=== PATIENT | male | born 1985 | race Caucasian/White ===

== ENCOUNTER 2023-01-08 08:34 | Outpatient (REF) | payer OTHER, SELFPAY ==
[2023-01-08 11:43] LABS: MANUAL DIFF FLAG NO
[2023-01-08 11:54] LABS: Appearance Urine Clear; Color Urine Dark Yellow; Glucose Urine UA Negative (Negative); Leukocyte Esterase Urine Negative (Negative); Nitrite Urine Negative (Negative); PH 5.5 (5.0-9.0); Specific Gravity - Urine 1.025 (1.005-1.025); Urine Blood Negative (Negative); Urine Ketones Negative (Negative); Urine Protein Negative (Neg-Trace)
[2023-01-08 11:56] LABS: Basophils Percent Auto 0.7 % (0-2); Eosinophils Percent Auto 0.7 % (0-4); Hematocrit 44.1 % (42.0-52.0); Hemoglobin 14.4 g/dl (14.0-18.0); Imm Gran Abs Auto 0.02 X10*3/uL (0.00-0.03); Imm Gran Pct Auto 0.4 % (0.0-0.4); Lymphocytes Percent Auto 42.9 % (20-40); Mean Corpuscular HGB Conc 32.7 g/dl (31.0-36.0); Mean Corpuscular Hemoglobin 30.6 pg (27.0-33.0); Mean Corpuscular Volume 93.8 fL (80.0-98.0); Mean Platelet Volume 11.8 fL (9.4-12.4); Monocytes Absolute Auto 0.4 X10*3/uL (0.1-1.2); Monocytes Percent Auto 8.4 % (2-11); Neutrophils Absolute Auto 2.1 x10*3/uL (2.0-8.3); Neutrophils Percent Auto 46.9 % (45-73); Platelet Count 249 X10*3/uL (160-400); Red Cell Distribution Width 12.4 % (11.0-16.0); White Blood Count 4.6 X10*3/uL (4.8-10.8)
[2023-01-08 12:28] LABS: Alanine Aminotransferase 17 U/L (0-40); Albumin Level 4.8 g/dL (3.5-5.0); Alkaline Phosphatase 37 U/L (39-117); Anion Gap 16 (12-20); Aspartate Amino Transferase 22 U/L (5-37); Blood Urea Nitrogen 16 mg/dL (9-16); Calcium 9.7 mg/dL (8.4-10.2); Carbon Dioxide 25 mmol/L (22-29); Chloride 104 mmol/L (96-108); Estimated Glomerular Filt Rate > 60; Glucose Random 81 mg/dL (60-115); Potassium 4.1 mmol/L (3.3-5.1); Sodium 141 mmol/L (135-145); TSH reflex Free T4 1.17 uIU/mL (0.32-4.0)
== END 2023-01-08 08:35 | disposition home or self-care (01) ==
LOC: HO.HMGCLDS 08:34
PROVIDERS: PCP Nurse Practitioner Family; Visit Provider Nurse Practitioner Family
DX: F32.9 Major depressive disorder, single episode, unspecified (principal)
CPT/HCPCS: 36415; 80053; 81003; 84443; 85025

== ENCOUNTER → 2023-03-21 12:57 | Outpatient (BNVA) | payer OTHER, SELFPAY | PROVIDERS: PCP Nurse Practitioner Family; Referring Provider Nurse Practitioner Family; Visit Provider Internal Medicine ==

== ENCOUNTER → 2023-04-04 12:48 | Outpatient (REF) | payer OTHER, SELFPAY ==
--- NOTE | 2023-04-04 12:51 | CA_ITS ---
Transthoracic Echocardiogram Patient (Last, First, Middle): Bin Guardado, Gender: Male Date of : 1985 Age: 38 Procedure Date: 04/04/2023 Procedure Type: Transthoracic Echocardiogram Location: OP Height: 180.34 cm Weight: 79.38 kg BSA: 1.99 m2 Heart Rate: bpm BP: 110 / 70 mmHg Dog Food Dough Mixer: TO Referring MD: Jn Esteban MD Bleacher [place] Pulp: Hakan Guadarrama MD Symptoms: I45.10 - Unspecified right bundle-branch block Study Quality: Adequate ECG Rhythm: Sinus Conclusions: - 1. Normal LV systolic function with LVEF of 55-60% with normal filling pattern 2. Normal cardiac valvular Dopplers 3. Mildly dilated ascending aorta at 3.8 cm 4. Normal RV systolic pressure 5. No gross pericardial effusion Findings Left Ventricle Normal left ventricular size, thickness, and systolic function. The visually estimated ejection fraction is between 55-60%. Spectral Doppler is indicative of a normal filling pattern. Peak GLS is -19.4%, within normal limits. Right Ventricle Normal right ventricular cavity size and systolic function. Atria Both atria are normal in size. There is lipomatous hypertrophy of the interatrial septum. There is no evidence of interatrial shunt. Aortic Valve Normal aortic valve structure and function. There is no aortic valve stenosis. There is no aortic valve regurgitation. Mitral Valve There is mild anterior and posterior mitral leaflet thickening. There is trace mitral valve regurgitation. There is no mitral valve stenosis. Pulmonic Valve The pulmonic valve is likely normal. Tricuspid Valve Normal tricuspid valve structure. There is trace tricuspid valve regurgitation. The right ventricular systolic pressure is normal. The right ventricular systolic pressure is 19 mmHg. Normal right atrial pressure. There is no evidence of pulmonary hypertension. Great Vessels The pulmonary artery was not well visualized. There is mild dilatation of the ascending aorta measuring 3.80 cm. Venous The inferior vena cava is normal in size and collapses greater than 50% with inspiration. Pericardium/Pleural There is no evidence of pericardial effusion. Prior Study Comparison No prior study available for comparison. Measurements 2D Linear Measurements IVSd: 1.03 0.6-0.9/0.6-1.0 cm LVIDd: 4.60 3.9-5.3/4.2-5.9 cm LVIDd Index: 2.31 2.4-3.2/2.2-3.1 cm/m2 LVIDs: 3.03 2.0-3.6 cm LVPWd: 0.76 0.7-1.1 cm LA Diam: 3.20 2.7-3.8/3.0-4.0 cm LAIDs Index: 1.61 1.5-2.3 cm/m2 LV Mass: 170.00 67-162/88-224 g LV Mass Index: 85.43 43-95/49-115 g/m2 LVOT Diam: 2.40 3.0+(-)1.3 cm 2D Systolic Function EF 4C: 58.20 >55% EF 2C: 58.40 >55% EF BiP: 58.00 >55% Mitral Valve MV Pk E: 0.60 MV PK A: 0.39 MV Decel Time: 266.00 E/A: 1.50 E'Lateral: 11.00 E'Medial: 7.29 E/E' Med: 8.20 E/E' Lat: 5.40 PHT: 78.00 MVA PHT: 2.82 Decel [place]: 2.24 Aortic Valve AoV Pk Evert: 1.19 AoV Mn Evert: 0.90 AoV VTI: 0.27 AoV Pk Grad: 6.00 Aov Mn Grad: 4.00 KASIA Cont.VTI: 3.41 LVOT LVOT Pk Evert: 1.04 LVOT Mn Evert: 0.69 LVOT VTI: 0.20 LVOT Pk Grad: 4.00 LVOT Mn Grad: 2.00 LVOT Diam: 2.40 LVOT Area: 4.52 Diastolic Function MV Pk E: 0.60 MV Pk A: 0.39 E/A: 1.50 E'Medial: 7.29 E/E' Med: 8.20 E' Laterial: 11.00 E/E' Lat: 5.40 Right Ventricle TAPSE (mm): 28.10 TVS' Evert: 12.90 Tricuspid Valve TR Pk Evert: 2.01 TR Pk Grad: 16.00 RA Press: 3.00 RVSP: 19.00 Great Vessels Aorta Sinus of Valsalva: 3.92 2.0-3.[address] [place]: 3.20 1.7-3.4 cm Ao Asc: 3.80 2.1-3.4 cm Updated in Other Vendor System with Status of Final Hakan Guadarrama MD electronically signed on 04/05/2023 10:49:44 AM with status of Final
== END ==
LOC: HO.CARD 12:48
PROVIDERS: PCP Nurse Practitioner Family; Visit Provider Internal Medicine
DX: I45.10 Unspecified right bundle-branch block (principal)
CPT/HCPCS: 93306; 93356

== ENCOUNTER 2023-05-16 14:23 | Outpatient (REF) | payer OTHER, SELFPAY ==
--- NOTE | ~2023-05-16 | US_ITS ---
EXAMINATION: US SCROTUM CLINICAL INFORMATION: Disorder of male genital organs, unspecified. Testicular lesion. COMPARISON: None available. TECHNIQUE: A sonogram of the scrotum was performed assessing jaime-scale appearance and color Doppler flow. Spectral Doppler analysis of the arterial and venous flow were performed in the testes bilaterally. FINDINGS: RIGHT: Right testicle measures 5.61 x 3.05 x 4.38 cm, volume 39.2 mL. No focal testicular parenchymal lesions are visualized. Spectral Doppler analysis of the arterial and venous flow is normal in the right testis. Right epididymal head is enlarged. A 0.8 cm mixed cystic and solid epididymal head lesion, of uncertain etiology unclear if this could reflect a septated complex cyst versus a mixed solid and cystic mass. The right epididymis appears possibly mildly hypervascular, recommend correlation with any clinical symptoms of epididymitis. No right hydrocele or varicocele is seen. Right epididymal Doppler flow is normal. LEFT: Left testicle measures 5.84 x 2.95 x 3.13 cm, volume 28.3 mL. No focal testicular parenchymal lesions are visualized. Spectral Doppler analysis of the arterial and venous flow is normal in the left testis. Left epididymal head is normal in size. No left varicocele is seen. Trace septated hydrocele with debris. Left epididymal Doppler flow is normal. US/US scrotum IMPRESSION: 1. The right epididymis appears possibly mildly hypervascular, recommend correlation with any clinical symptoms of epididymitis. 2. A 0.8 cm mixed cystic and solid epididymal head lesion, of uncertain etiology unclear if this could reflect a septated complex cyst versus a mixed solid and cystic mass, for which differential considerations would be broad however include adenomatoid tumor of the scrotum or papillary cystoadenoma of the epididymis recommend urologic evaluation and management. 3. Trace septated left hydrocele with debris. The report will be called to the ordering clinician by a [facility] Residential Installer.
== END 2023-05-16 14:24 | disposition home or self-care (01) ==
LOC: HO.HMGCX 14:23
PROVIDERS: PCP Nurse Practitioner Family; Visit Provider Nurse Practitioner Family
DX: N50.9 Disorder of male genital organs, unspecified (principal)
CPT/HCPCS: 76870

== ENCOUNTER 2023-06-14 14:58 | Outpatient (AMB) | payer OTHER, SELFPAY ==
--- NOTE | 2023-06-14 15:00 | MHC.OFFVIS ---
Intake Intake Visit Reasons: Disorder of male genital organs Intake Note: New Patient presents for initial visit for hydrocele/spermatocele Urology Medication: none Blood thinner: none Fire Pot Operator Required: No Accompanied by: Self / Same As Patient Allergies No Known Allergies [No Known Allergies*] Allergy (Verified 06/14/23 15:51) Medication List - Last Reconciled 06/14/23 by CONTRERAS Narvaez- sertraline 25 mg PO DAILY 30 days HPI HPI Comments History of Present Illness Details Bin is a very pleasant 38-year-old male patient of Dr. Aldana. He presents to the office today as a new patient for noted right-sided lump/mass on his right upper testicle. He discusses having had his annual physical with PCP at which time recommendations were made for scrotal ultrasound and follow-up with Urology. The patient has a previous history of right sided hydrocelectomy and a vasectomy with Dr. Phillips in 2019. He denies any testicular pain or urinary issues. He denies urinary urgency, urinary frequency, incontinence, nocturia, hematuria, dysuria, foul smelling urine, changes to urinary stream, flank pain, fever, and or chills. He is happy with his current voiding parameters. Recent scrotal ultrasound results reviewed with the patient today. A 0.8 cm mixed cystic and solid epididymal head lesion. In assessment of the patient today left testicle WNL; no masses, lesion, or drainage noted. No abnormalites palpated. Dime sized movable lump/mass noted to the right side epididymal head otherwise no other lesions, lumps, or masses palpated. No pain elicited bilaterally during examination. The testicles/scrotum otherwise appear normal on exam today. In office urinalysis results reviewed with the patient today. [facility] Family History Unknown No problems noted. Social History Housing: House Alcohol intake: current Alcohol intake frequency: a few times a month Patient Tobacco Use Status: Former Tobacco user Quit Date: quit 12 years ago e-Cigarette/Vaping Use: Never Used Second Hand Smoke Exposure: No service: No Current occupational status: employed Current occupation: green collar Current occupational exposures/hazards: No Cognitive needs: No Hearing needs: No Vision needs: No Review of Systems Const All systems reviewed & are unremarkable except as noted in HPI and below Reports no additional complaints Eyes Reports no additional complaints ENT Reports no additional complaints Card Reports no additional complaints Resp Reports no additional complaints GI Reports no additional complaints Reports as per HPI Neuro Reports no additional complaints Psych Reports no additional complaints Endo Reports no additional complaints Cameron/Lymph Reports no additional complaints Aller/Immun Reports no additional complaints Physical Exam Const General: cooperative, healthy appearing, comfortable, no acute distress, well developed, alert and awake Nutritional Appearance: average body habitus Orientation/consciousness: patient oriented x3 Limitations: no limitations HEENT Head: Yes normal to inspection, Yes normocephalic and Yes atraumatic Ears: hearing grossly normal bilaterally Eyes General: appearance normal, both eyes and all related structures Neck Neck: Yes normal visual inspection and Yes trachea midline Chest Chest palpation & inspection: normal inspection of the chest Resp Effort & Inspection: normal respiratory effort and able to speak in complete sentences Cardio Rate: regular rate GI Inspection: Yes normal to inspection General: Yes no CVA tenderness Back/Spine/Pelvis Back: no CVA tenderness Skin General skin exam: no rashes or lesions noted Neuro General: patient oriented x3 Extrem General: Yes normal to inspection Psych Appearance: grossly normal and well kempt Mental Status: mental status grossly normal Speech and movement: Normal speech and movement present and Clear speech present Affect: normal affect Attitude: cooperative Thought process: Normal thought process present Thought content: Normal thought content present Insight: Good insight present (Psych) Judgement: Good judgement present (Psych) Results AMB Urinalysis, Automated UA Leukoctes 0 Samuel/uL Last Edit by Verimatrix on 06/14/23 15:11 UA Nitrite Last Edit by Verimatrix on 06/14/23 15:11 UA Urobilinogen 0.2 mg/dL Last Edit by Verimatrix on 06/14/23 15:11 UA Protein 0 mg/dL Last Edit by Verimatrix on 06/14/23 15:11 UA pH 6.0 Last Edit by Verimatrix on 06/14/23 15:11 UA Blood 10 Alejandro/uL Last Edit by Verimatrix on 06/14/23 15:11 UA Specific [place] 1.015 Last Edit by Verimatrix on 06/14/23 15:11 UA Ketone Negative Last Edit by Ang Higginbotham on 06/14/23 15:11 UA Bilirubin 0 mg/dL Last Edit by Ang Higginbotham on 06/14/23 15:11 UA Glucose 0 mg/dL Last Edit by Ang Higginbotham on 06/14/23 15:11 Results Reviewed Results Reviewed: Laboratory Last Values Urine pH (Auto) 6.0 06/14/23 15:02 Specific [place] (Auto) 1.015 06/14/23 15:02 Urine Protein (Auto) 0 mg/dL 06/14/23 15:02 Glucose (UA)(Auto) 0 mg/dL 06/14/23 15:02 Urine Ketones (Auto) Negative 06/14/23 15:02 Urine Blood (Auto) 10 Alejandro/uL 06/14/23 15:02 Urine Bilirubin (Auto) 0 mg/dL 06/14/23 15:02 Urine Urobilinogen (Auto) 0.2 mg/dL 06/14/23 15:02 Leukocyte Esterase (Auto) 0 Samuel/uL 06/14/23 15:02 Date of Service: 05/16/23 EXAMINATION: US SCROTUM FINDINGS: RIGHT: Right testicle measures 5.61 x 3.05 x 4.38 cm, volume 39.2 mL. No focal testicular parenchymal lesions are visualized. Spectral Doppler analysis of the arterial and venous flow is normal in the right testis. Right epididymal head is enlarged. A 0.8 cm mixed cystic and solid epididymal head lesion, of uncertain etiology unclear if this could reflect a septated complex cyst versus a mixed solid and cystic mass. The right epididymis appears possibly mildly hypervascular, recommend correlation with any clinical symptoms of epididymitis. No right hydrocele or varicocele is seen. Right epididymal Doppler flow is normal. LEFT: Left testicle measures 5.84 x 2.95 x 3.13 cm, volume 28.3 mL. No focal testicular parenchymal lesions are visualized. Spectral Doppler analysis of the arterial and venous flow is normal in the left testis. Left epididymal head is normal in size. No left varicocele is seen. Trace septated hydrocele with debris. Left epididymal Doppler flow is normal. IMPRESSION: 1.? The right epididymis appears possibly mildly hypervascular, recommend correlation with any clinical symptoms of epididymitis. 2.? A 0.8 cm mixed cystic and solid epididymal head lesion, of uncertain etiology unclear if this could reflect a septated complex cyst versus a mixed solid and cystic mass, for which differential considerations would be broad however include adenomatoid tumor of the scrotum or papillary cystoadenoma of the epididymis recommend urologic evaluation and management. 3.? Trace septated left hydrocele with debris. Assessment & Plan Assessment & Plan (1) Epididymal cyst: Code(s): N50.3 - Cyst of epididymis Plan In office urinalysis results reviewed with the patient today; as noted above Patient with hx of right sided hydrocelectomy and vasectomy with Dr. Phillips in 2019 No pain elicited on exam today It appears right-sided epididymal head cyst versus scar tissue. Discussed u/s results and assessment with Dr. Phillips Discussed surveillance monitoring Scrotal ultrasound in 6 months Follow-up in 6 months with imaging; or sooner with any issues, concerns, and or questions. Orders: Orders US scrotum 6 Months N43.3 - Hydrocele, unspecified AMB Urinalysis Automated Today Z13.9 - Encounter for screening, unspecified Patient Instructions: The patient had an opportunity to ask questions regarding the treatment plan. All questions were answered. Physical exam, labs, and imaging were discussed and reviewed in detail. As well as risks, benefits, and discussion of treatment choices. No major barriers to understanding were identified. The patient expressed understanding and agreement with the above treatment plan. The patient was made aware they should contact our office by phone for worsening of their current condition, the appearance of new symptoms, or with any questions or concerns. Compliance is encouraged with any medications and follow up testing that is ordered. It is a privilege to be allowed the opportunity to participate in? your urological care.? Again, if you have any questions or concerns If you have any questions or concerns please do not hesitate to contact me. The office is [phone]. This note is constructed using voice recognition software. While every effort has been made to ensure accuracy sharepoint manager errors may have been included. Yours sincerely, BECKA Narvaez Coding Level of Care Code New Pt Level 3 (25178) Diagnoses Epididymal cyst N50.3
== END 2023-06-14 15:30 | disposition home or self-care (01) ==
PROVIDERS: PCP Nurse Practitioner Family; Visit Provider Nurse Practitioner Family
DX: N50.3 Cyst of epididymis (principal)
CPT/HCPCS: 99203

== ENCOUNTER → 2023-06-14 14:58 | Outpatient (BNVA) | payer OTHER, SELFPAY | PROVIDERS: PCP Nurse Practitioner Family; Visit Provider Nurse Practitioner Family ==

== ENCOUNTER 2023-11-26 10:24 | Outpatient (REF) | payer OTHER, SELFPAY ==
--- NOTE | ~2023-11-26 | US_ITS ---
EXAMINATION: US SCROTUM CLINICAL INFORMATION: Hydrocele, unspecified. COMPARISON: Ultrasound scrotum 05/16/2023. TECHNIQUE: A sonogram of the scrotum was performed assessing jaime-scale appearance and color Doppler flow. Spectral Doppler analysis of the arterial and venous flow were performed in the testes bilaterally. FINDINGS: RIGHT: Right testicle measures 5.37 x 3.21 x 4.25 cm, volume 38.3 mL. No focal testicular parenchymal lesions are visualized. Spectral Doppler analysis of the arterial and venous flow is normal in the right testis. Right epididymal head is normal in size. Dilated tubular structures within the body of the right epididymis. No internal color Doppler flow. No right hydrocele is seen. Right varicocele. Right epididymal Doppler flow is normal. LEFT: Left testicle measures 6.10 x 2.67 x 3.01 cm, volume 25.7 mL. No focal testicular parenchymal lesions are visualized. Spectral Doppler analysis of the arterial and venous flow is increased in the left testis. Left epididymal head is normal in size. Left varicocele. Small left hydrocele. Left epididymal Doppler flow is normal. US/US scrotum IMPRESSION: Dilated tubular structure involving the body of the right epididymis with possible thickening of the epididymis. No associated/increased vascular flow. The appearance is similar to the prior study. Bilateral varicoceles. Small left hydrocele.
== END 2023-11-26 10:25 | disposition home or self-care (01) ==
LOC: HO.HMGCX 10:24
PROVIDERS: PCP Nurse Practitioner Family; Visit Provider Nurse Practitioner Family
DX: N43.3 Hydrocele, unspecified (principal)
CPT/HCPCS: 76870

== ENCOUNTER 2023-12-13 13:27 | Outpatient (AMB) | payer OTHER, SELFPAY ==
--- NOTE | 2023-12-13 13:48 | A.OFFVIS_ITS ---
Intake Intake Visit Reasons: 6m/US(set) Intake Note: Patient presents for follow up visit for epididymal cyst and ultrasound results Imagin11/26/23 Urology Medications: none Blood Thinner: none Or First Assist Registered Nurse Required: No Accompanied by: Self / Same As Patient Allergies No Known Allergies [No Known Allergies*] Allergy (Verified 12/14/23 07:00) Medication List - Last Reconciled 12/14/23 by BECKA Narvaez No Known Home Meds HPI HPI Comments History of Present Illness Details Bin is a very pleasant 38-year-old male patient of Dr. Aldana. He presents to the office today for a follow up of his epeidiymal head cyst. In discussion with the patient today reports to be doing and feeling well. Recent scrotal ultrasound results reviewed with the patient today. Dilated tubular structure involving the body of the right epididymis with possible thickening of the epididymis. No associated/increased vascular flow. The appearance is similar to the prior study. Bilateral varicoceles. Small left hydrocele. Similar to prior study. He has a history of a right sided hydrocelectomy and a vasectomy with Dr. Phillips in 2019. He denies any testicular pain or urinary issues. He denies urinary urgency, urinary frequency, incontinence, nocturia, hematuria, dysuria, foul smelling urine, changes to urinary stream, flank pain, fever, and or chills. He is happy with his current voiding parameters. He otherwise offers no other issues or concerns at this time [facility] Family History Unknown No problems noted. Social History Housing: House Alcohol intake: current Alcohol intake frequency: a few times a month Patient Tobacco Use Status: Former Tobacco user Quit Date: quit 12 years ago e-Cigarette/Vaping Use: Never Used Second Hand Smoke Exposure: No service: No Current occupational status: employed Current occupation: green collar Current occupational exposures/hazards: No Cognitive needs: No Hearing needs: No Vision needs: No Review of Systems Const All systems reviewed & are unremarkable except as noted in HPI and below Reports no additional complaints Eyes Reports no additional complaints ENT Reports no additional complaints Card Reports no additional complaints Resp Reports no additional complaints GI Reports no additional complaints Reports as per HPI Neuro Reports no additional complaints Psych Reports no additional complaints Endo Reports no additional complaints Cameron/Lymph Reports no additional complaints Aller/Immun Reports no additional complaints Physical Exam Const General: cooperative, healthy appearing, comfortable, no acute distress, well developed, alert and awake Nutritional Appearance: average body habitus Orientation/consciousness: patient oriented x3 Limitations: no limitations HEENT Head: Yes normal to inspection, Yes normocephalic and Yes atraumatic Ears: hearing grossly normal bilaterally Eyes General: appearance normal, both eyes and all related structures Neck Neck: Yes normal visual inspection and Yes trachea midline Chest Chest palpation & inspection: normal inspection of the chest Resp Effort & Inspection: normal respiratory effort and able to speak in complete sentences Cardio Rate: regular rate GI Inspection: Yes normal to inspection General: Yes no CVA tenderness Back/Spine/Pelvis Back: no CVA tenderness Skin General skin exam: no rashes or lesions noted Neuro General: patient oriented x3 Extrem General: Yes normal to inspection Psych Appearance: grossly normal and well kempt Mental Status: mental status grossly normal Speech and movement: Normal speech and movement present and Clear speech present Affect: normal affect Attitude: cooperative Thought process: Normal thought process present Thought content: Normal thought content present Insight: Good insight present (Psych) Judgement: Good judgement present (Psych) Results AMB Urinalysis, Automated UA Leukoctes 0 Asmuel/uL Last Edit by Ivory Hooper [facility] on 12/13/23 14 :01 UA Nitrite Negative Last Edit by Ivory Hooper [facility] on 12/13/23 14: 01 UA Urobilinogen 0.2 mg/dL Last Edit by Ivory Hooper [facility] on 4 14:01 UA Protein 0 mg/dL Last Edit by Ivory Hooperalberto Hooper [facility] on 12/13/23 14:01 UA pH 6.0 Last Edit by Ivory Hooper [facility] on 12/13/23 14:01 UA Blood 0 Alejandro/uL Last Edit by Ivory Hooper [facility] on 12/13/23 14:01 UA Specific [place] 1.015 Last Edit by Ivory Hoopre [facility] on 14:01 UA Ketone Negative Last Edit by Ivory Hooper [facility] on 12/13/23 14:0 1 UA Bilirubin 0 mg/dL Last Edit by Ivory Hooper [facility] on 12/13/23 14: 01 UA Glucose 0 mg/dL Last Edit by Ivory Hooper CMA on 12/13/23 14:01 Results Reviewed Results Reviewed: Laboratory Last Values Urine pH (Auto) 6.0 12/13/23 13:50 Specific [place] (Auto) 1.015 12/13/23 13:50 Urine Protein (Auto) 0 mg/dL 12/13/23 13:50 Glucose (UA)(Auto) 0 mg/dL 12/13/23 13:50 Urine Ketones (Auto) Negative 12/13/23 13:50 Urine Blood (Auto) 0 Alejandro/uL 12/13/23 13:50 Urine Nitrite (Auto) Negative 12/13/23 13:50 Urine Bilirubin (Auto) 0 mg/dL 12/13/23 13:50 Urine Urobilinogen (Auto) 0.2 mg/dL 12/13/23 13:50 Leukocyte Esterase (Auto) 0 Samuel/uL 12/13/23 13:50 Date of Service: 11/26/23 EXAMINATION: US SCROTUM FINDINGS: RIGHT: Right testicle measures 5.37 x 3.21 x 4.25 cm, volume 38.3 mL. No focal testicular parenchymal lesions are visualized. Spectral Doppler analysis of the arterial and venous flow is normal in the right testis. Right epididymal head is normal in size. Dilated tubular structures within the body of the right epididymis. No internal color Doppler flow. No right hydrocele is seen. Right varicocele. Right epididymal Doppler flow is normal. LEFT: Left testicle measures 6.10 x 2.67 x 3.01 cm, volume 25.7 mL. No focal testicular parenchymal lesions are visualized. Spectral Doppler analysis of the arterial and venous flow is increased in the left testis. Left epididymal head is normal in size. Left varicocele. Small left hydrocele. Left epididymal Doppler flow is normal. IMPRESSION: Dilated tubular structure involving the body of the right epididymis with possible thickening of the epididymis. No associated/increased vascular flow. The appearance is similar to the prior study. Bilateral varicoceles. Small left hydrocele. Assessment & Plan Assessment & Plan (1) Epididymal cyst: Code(s): N50.3 - Cyst of epididymis (2) Testicular lesion: Code(s): N50.9 - Disorder of male genital organs, unspecified Plan In office urinalysis results reviewed with the patient today; as noted above Patient with hx of right sided hydrocelectomy and vasectomy with Dr. Phillips in 2019 He denies any bothersome urinary issues or concerns. He reports be happy with current voiding parameters. Discussed surveillance monitoring Scrotal ultrasound in 1 year Follow-up in 1 year with imaging; or sooner with any issues, concerns, and or questions. Orders: Orders AMB Urinalysis Automated 12/13/23 R33.9 - Retention of urine, unspecified US scrotum 364 Days N43.3 - Hydrocele, unspecified, N50.3 - Cyst of epididymis, N50.9 - Disorder of male genital organs, unspecified Patient Instructions: The patient had an opportunity to ask questions regarding the treatment plan. All questions were answered. Physical exam, labs, and imaging were discussed and reviewed in detail. As well as risks, benefits, and discussion of treatment choices. No major barriers to understanding were identified. The patient expressed understanding and agreement with the above treatment plan. The patient was made aware they should contact our office by phone for worsening of their current condition, the appearance of new symptoms, or with any questions or concerns. Compliance is encouraged with any medications and follow up testing that is ordered. It is a privilege to be allowed the opportunity to participate in? your urological care.? Again, if you have any questions or concerns If you have any questions or concerns please do not hesitate to contact me. The office is [phone]. This note is constructed using voice recognition software. While every effort has been made to ensure accuracy continuous towel roller errors may have been included. Yours sincerely, BECKA Narvaez Coding Level of Care Code Est Pt Level 3 (24185) Diagnoses Epididymal cyst N50.3 Testicular lesion N50.9
== END 2023-12-13 14:17 | disposition home or self-care (01) ==
PROVIDERS: PCP Nurse Practitioner Family; Visit Provider Nurse Practitioner Family
DX: N50.3 Cyst of epididymis (principal); N50.9 Disorder of male genital organs, unspecified
CPT/HCPCS: 99213

== ENCOUNTER → 2023-12-13 13:27 | Outpatient (BNVA) | payer OTHER, SELFPAY | PROVIDERS: PCP Nurse Practitioner Family; Visit Provider Nurse Practitioner Family | DX: N50.3 Cyst of epididymis (principal); N50.9 Disorder of male genital organs, unspecified; R33.9 Retention of urine, unspecified | CPT/HCPCS: 81003 ==

== ENCOUNTER → 2024-03-12 09:56 | Outpatient (REF) | payer OTHER, SELFPAY ==
--- NOTE | 2024-03-12 09:59 | CA_ITS ---
Transthoracic Echocardiogram Patient (Last, First, Middle): Bin Guardado, Gender: Male Date of : 1985 Age: 39 Procedure Date: 03/12/2024 Procedure Type: Transthoracic Echocardiogram Location: OP Height: 180.34 cm Weight: 83.92 kg BSA: 2.04 m2 Heart Rate: bpm BP: 120 / 82 mmHg Wire Harness Assembler: JOHN Referring MD: Jn Esteban MD Md Urologist: Hakan Guadarrama MD Symptoms: I77.89 - Other specified disorders of arteries and arterioles Study Quality: Adequate ECG Rhythm: Sinus Conclusions: - 1. Normal LV systolic function with LVEF of 55-60% 2. Normal cardiac valvular Doppler 3. Mildly dilated ascending aorta at 3.8 cm 4. Normal RV systolic pressure 5. No pericardial effusion Findings Left Ventricle Normal left ventricular size, thickness, and systolic function. The visually estimated ejection fraction is between 55-60%. Diastolic function is normal for age. Peak GLS is -19.3%, within normal limits. Right Ventricle Normal right ventricular cavity size and systolic function. Atria Both atria are normal in size. There is no evidence of interatrial shunt. Aortic Valve Normal aortic valve structure and function. There is no aortic valve stenosis. There is no aortic valve regurgitation. Mitral Valve There is mild anterior and posterior mitral leaflet thickening. There is mild mitral annular calcification. There is trace mitral valve regurgitation. There is no mitral valve stenosis. Pulmonic Valve The pulmonic valve is likely normal. There is trace pulmonic valve regurgitation. Tricuspid Valve Normal tricuspid valve structure. There is trace tricuspid valve regurgitation. The right ventricular systolic pressure is normal. The right ventricular systolic pressure is 21 mmHg. Normal right atrial pressure. There is no evidence of pulmonary hypertension. Great Vessels The pulmonary artery was not well visualized. There is mild dilatation of the ascending aorta measuring 3.80 cm. Venous The inferior vena cava is normal in size and collapses greater than 50% with inspiration. Pericardium/Pleural There is no evidence of pericardial effusion. Prior Study Comparison No significant change compared to prior study dated: 04/04/2023. Measurements 2D Linear Measurements IVSd: 0.78 0.6-0.9/0.6-1.0 cm LVIDd: 5.08 3.9-5.3/4.2-5.9 cm LVIDd Index: 2.49 2.4-3.2/2.2-3.1 cm/m2 LVIDs: 3.38 2.0-3.6 cm LVPWd: 0.78 0.7-1.1 cm LA Diam: 3.20 2.7-3.8/3.0-4.0 cm LAIDs Index: 1.57 1.5-2.3 cm/m2 LV Mass: 168.12 67-162/88-224 g LV Mass Index: 82.41 43-95/49-115 g/m2 LVOT Diam: 2.40 3.0+(-)1.3 cm 2D Systolic Function EF 4C: 58.60 >55% EF 2C: 63.10 >55% EF BiP: 59.90 >55% Mitral Valve MV Pk E: 0.60 MV PK A: 0.48 MV Decel Time: 365.00 E/A: 1.20 E'Lateral: 11.60 E'Medial: 7.51 E/E' Med: 7.90 E/E' Lat: 5.10 PHT: 107.00 MVA PHT: 2.06 Decel [place]: 1.63 Aortic Valve AoV Pk Evert: 1.08 AoV Mn Evert: 0.80 AoV VTI: 0.28 AoV Pk Grad: 5.00 Aov Mn Grad: 3.00 KASIA Cont.VTI: 3.39 LVOT LVOT Pk Evert: 0.97 LVOT Mn Evert: 0.64 LVOT VTI: 0.21 LVOT Pk Grad: 4.00 LVOT Mn Grad: 2.00 LVOT Diam: 2.40 LVOT Area: 4.52 Diastolic Function MV Pk E: 0.60 MV Pk A: 0.48 E/A: 1.20 E'Medial: 7.51 E/E' Med: 7.90 E' Laterial: 11.60 E/E' Lat: 5.10 Right Ventricle TAPSE (mm): 21.70 TVS' Evert: 10.30 Tricuspid Valve TR Pk Evert: 1.83 TR Pk Grad: 13.00 RA Press: 8.00 RVSP: 21.00 Great Vessels Aorta Sinus of Valsalva: 4.00 2.0-3.[address] Ridge: 3.00 1.7-3.4 cm Ao Asc: 3.80 2.1-3.4 cm Ao Arch: 3.10 Updated in Other Vendor System with Status of Final Hakan Guadarrama MD electronically signed on 03/13/2024 3:43:31 PM with status of Final
== END ==
LOC: HO.CARD 09:56
PROVIDERS: PCP Nurse Practitioner Family; Visit Provider Internal Medicine
DX: I77.89 Other specified disorders of arteries and arterioles (principal)
CPT/HCPCS: 93306; 93356

== ENCOUNTER → 2024-03-12 09:59 | Outpatient (BNV) | payer OTHER, SELFPAY | PROVIDERS: PCP Nurse Practitioner Family; Visit Provider Internal Medicine Cardiovascular Disease | DX: I77.810 Thoracic aortic ectasia (principal); I34.0 Nonrheumatic mitral (valve) insufficiency | CPT/HCPCS: 93306; 93356 ==

== ENCOUNTER 2025-04-17 09:01 | Outpatient (AMB) | payer OTHER, SELFPAY ==
--- NOTE | 2025-04-17 09:03 | MHC.OFFWIV ---
Intake Vital Signs 04/17/25 09:08 Height 5 ft 11 in Weight 195 lb 6 oz BMI 27.2 BP 114/76 Blood Pressure Location Rt brachial Position Sitting Pulse 94 Pulse Source Pulse Oximeter Temp 97.6 F Temp Source Oral Pulse Oximetry (%) 97 Oxygen Delivery Method Room Air Intake Visit Reasons: EP tick bite Intake Note: Pt presents to the office today for c/o a possible tick bite on his left shoulder blade area. Pt states he noticed it was itchy for about 1 week and then noticed a red ring on Sunday. Patient Tobacco Use Status: Former Tobacco user Allergies No Known Allergies [No Known Allergies*] Allergy (Verified 04/17/25 09:09) HPI HPI Comments History of Present Illness Details History of Present Illness - The patient is a 40-year-old male presenting with a rash on the left shoulder. - The rash began as an itchy spot on the left shoulder, which started a couple of weeks ago. - Five days ago, the rash became intensely itchy and developed into a larger area of erythema. - The patient experienced fever and soreness in the hamstrings 4 days ago. - The patient has a history of frequent tick bites and suspected Lyme disease due to similar symptoms in the past. 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 Denies hx of MRSA. Physical Exam General: Cooperative, healthy appearing, comfortable, no acute distress and well developed Orientation: Patient oriented x3 Limitations: No limitations Head: Normal to inspection Ears: Hearing grossly normal bilaterally Nose: Normal External nose present Face and sinus: Normal facial exam Eyes: Appearance normal, both eyes and all related structures Neck: Normal visual inspection and Yes full ROM Respiratory: Normal respiratory effort and able to speak in complete sentences. Skin: macular erthematous rash approx 5cm x 6cm round on posterior left shoulder/back with warmth. no ecchymosis, drainage or pinpoint bite, no lacerations. Neuro: Patient oriented x3 Extremities: Normal to inspection [facility] Family History Unknown No problems noted. Social History Housing: House Alcohol intake: current Alcohol intake frequency: a few times a month Patient Tobacco Use Status: Former Tobacco user e-Cigarette/Vaping Use: Never Used Second Hand Smoke Exposure: No service: No Current occupational status: employed Current occupation: green collar Current occupational exposures/hazards: No Cognitive needs: No Hearing needs: No Vision needs: No Review of Systems Const All systems reviewed & are unremarkable except as noted in HPI and below Physical Exam Vital Signs: Last Vital Signs Temp 97.6 F 04/17/25 09:08 Pulse 94 04/17/25 09:08 BP 114/76 04/17/25 09:08 Pulse Ox 97 04/17/25 09:08 Oxygen Delivery Method Room Air 04/17/25 09:08 BMI result Body Mass Index 27.2 Assessment & Plan Assessment & Plan (1) Cellulitis: Code(s): L03.90 - Cellulitis, unspecified Qualifiers: Site of cellulitis: extremity Site of cellulitis of extremity: upper extremity Laterality: left Qualified Code(s): L03.114 - Cellulitis of left upper limb Plan: Plan - Initiate treatment with Keflex for suspected cellulitis, with instructions to monitor for improvement by Sunday. - Advise patient to return or contact via portal if symptoms do not improve, with consideration for adding Bactrim or doxycycline if necessary. - Educate patient on the importance of completing the antibiotic course and monitoring for any signs of systemic infection. Patient was informed and verbally consented to the use of an ambient scribe for clinic note documentation during this visit. Medications: New cephalexin 500 mg PO Q6H 28 caps 0RF Coding Level of Care Code Est Pt Level 3 (18419) Diagnoses Cellulitis of left upper extremity L03.114 Site of cellulitis: extremity Site of cellulitis of extremity: upper extremity Laterality: left
[2025-04-17 09:08] VITALS: BP 114/76; PULSE 94; TEMP 36.4; O2SAT 97; BMI 27.2
--- OUTSIDE RECORDS SUMMARY | 2025-04-17 09:24 | XMS_ITS | Patient Health Record ---
Author Organization [facility] Address [address] [place] [address] Care Team Providers Care Photograph Inspector Name Role Phone Ruperto Alberts Primary Care Provider Unav ailable LenoraJohn Unavailable [phone] Reason For Referral No Information Plan Of Treatment No Information Insurance Providers Payer Name Payer Address Payer Phone Subscriber Number Group Number Insured Name Patient Relationship to Insured Coverage Start Date Coverage End Date [employer] [address] [place] [id number] Bin Guardado Self - patient is the insured
== END 2025-04-17 09:18 | disposition home or self-care (01) ==
PROVIDERS: PCP Nurse Practitioner Family; Visit Provider Physician Assistant
DX: L03.114 Cellulitis of left upper limb (principal)

== ENCOUNTER → 2025-04-17 09:01 | Outpatient (BNVA) | payer OTHER, SELFPAY | PROVIDERS: PCP Nurse Practitioner Family; Visit Provider Physician Assistant ==